=== PATIENT | female | born 1985 | race Caucasian/White ===

== ENCOUNTER 2020-10-08 14:02 | Outpatient (CLI) | payer BC, SELFPAY ==
--- NOTE | 2020-10-08 13:45 | DI.RAD_ITS ---
Exam(s) XR KNEE LT 3V AP,LAT,USHA EXAM: XR KNEE LT 3V AP,LAT,SUHA CLINICAL HISTORY: left knee pain. TECHNIQUE: 2D digital imaging was performed. COMPARISON: No exams were available for comparison FINDINGS: BONES: No acute fracture is present. No bony destructive lesion is seen. No significant degenerative changes. JOINTS: The knee is normally aligned. No joint effusion is seen. Joint spaces are well maintained. SOFT TISSUE: Normal. IMPRESSION: Normal radiographs of the left knee. DATA REPOSITORY: RADIATION DOSE DELIVERED:
== END 2020-10-08 14:03 | disposition home or self-care (01) ==
LOC: DIORS 14:02
PROVIDERS: PCP Nurse Practitioner Adult Health; Visit Provider Student in an Organized Health Care Education/Training Program
DX: M25.562 Pain in left knee (principal)
CPT/HCPCS: 73562

== ENCOUNTER 2021-12-02 16:08 | Outpatient (REF) | payer BC, SELFPAY ==
[2021-12-04 11:37] LABS: COVID-19 RT-PCR UVMMC Result Positive (Negative)
== END 2021-12-02 16:09 | disposition home or self-care (01) ==
LOC: LBN 16:08
PROVIDERS: PCP Nurse Practitioner Adult Health; Visit Provider Nurse Practitioner
DX: U07.1 COVID-19 (principal)
CPT/HCPCS: U0003

== ENCOUNTER 2021-12-19 10:55 | Outpatient (REF) | payer BC, SELFPAY ==
--- NOTE | 2021-12-19 10:00 | PAPFT_PTH ---
PATIENT: Marisol Obrien LOC: [facility]#:[id number] AGE/SX: 36/F ROOM: RE12/19/[address]: Kary Brown APRN : 1985 BED: DIS: 12/19/2021 SPEC #: [id number] RECD: 12/19/21 18:31 STATUS: MAGUI REQ #: [id number] WERO: 12/19/21 10:[address]: Kary Brown DEPT: [facility] Cytology RECD BY: Raquel Malik Tissues: 1 - CX/ENDOCX FOR PAP SMEARS Procedures: PAP THIN PREP/UVM Screening HPV DNA PROBE Comments: [id number]
[2021-12-22 15:42] LABS: Chlamydia Result Negative (Negative); GC Result Negative (Negative)
== END 2021-12-19 10:56 | disposition home or self-care (01) ==
LOC: LBN 10:55
PROVIDERS: PCP Nurse Practitioner Adult Health; Visit Provider Nurse Practitioner Adult Health
DX: Z11.3 Encounter for screening for infections with a predominantly sexual mode of transmission (principal); Z12.4 Encounter for screening for malignant neoplasm of cervix
CPT/HCPCS: 87491; 87591; 88142; 87480; 87510; 87624; 87660

== ENCOUNTER 2021-12-25 03:59 | Outpatient (CLI) | payer BC, SELFPAY ==
[2021-12-26 09:32] LABS: HIV-1/2 Ag & Ab Screen Negative (Negative)
[2021-12-26 10:04] LABS: Hepatitis C Ab w Rflx HCV PCR Negative (Negative)
[2021-12-26 12:15] LABS: Syphilis Serology (RPR) Negative (Negative)
== END 2021-12-25 04:00 | disposition home or self-care (01) ==
LOC: LBO 03:59
PROVIDERS: PCP Nurse Practitioner Adult Health; Referring Provider Nurse Practitioner Adult Health; Visit Provider Nurse Practitioner Adult Health
DX: Z11.3 Encounter for screening for infections with a predominantly sexual mode of transmission (principal); Z11.4 Encounter for screening for human immunodeficiency virus [HIV]; Z11.59 Encounter for screening for other viral diseases
CPT/HCPCS: 36415; 86803; 87389; 86592

== ENCOUNTER 2023-12-02 12:34 | Outpatient (REF) | payer BC, SELFPAY ==
[2023-12-02 14:58] LABS: Bilirubin Negative (Negative); Blood Negative (Negative); Clarity Clear (Clear); Glucose Negative (Negative); Ketones Trace mg/dL (Negative); Leukocyte Esterase Negative (Negative); Nitrite Negative (Negative); Specific Gravity <= 1.005 (1.005-1.025); Urobilinogen 0.2 mg/dL (Up to 0.2)
== END 2023-12-02 12:35 | disposition home or self-care (01) ==
LOC: LBN 12:34
PROVIDERS: PCP Nurse Practitioner Adult Health; Visit Provider Nurse Practitioner Adult Health
DX: N39.0 Urinary tract infection, site not specified (principal)
CPT/HCPCS: 81003

== ENCOUNTER 2024-04-16 20:21 | Emergency (ER) | payer BC, SELFPAY ==
[2024-04-16 20:34] VITALS: BP 99/60; PULSE 72; RESP 20; TEMP 36.7; O2SAT 97
[2024-04-16 20:41] VITALS: BP 99/60; PULSE 78; RESP 16; TEMP 36.7; O2SAT 97
--- NOTE | 2024-04-16 20:52 | W.ED.GENAD ---
Discharge Plan Disposition Patient Disposition: Home Condition: Stable Discharge Details Clinical Impression: Nausea vomiting and diarrhea, Dehydration Primary Care Provider: Kary Brown ED Provider: Nick Dixon Home Meds and New Rx's Prescriptions: Discontinued miconazole nitrate 200 mg/5 gram (4 %) cream 1 appful vaginal QHS 3 Days Qty: 15 1RF Rx Instructions: Trial cream only nystatin 100,000 unit/gram ointment 1 applic topical DAILY Qty: 30 1RF Rx Instructions: trial for groin rash; try before cycling loratadine 10 mg tablet 10 - 20 mg PO DAILY Qty: 30 0RF famotidine 20 mg tablet 20 mg PO DAILY Qty: 14 0RF nitrofurantoin monohyd/m-cryst [Macrobid] 100 mg capsule 100 mg PO BID Qty: 10 0RF Rx Instructions: must administer with a meal/food drospirenone-ethinyl estradiol 3-0.02 mg tablet 1 tab PO DAILY Qty: 84 3RF Discharge Instructions Instructions: Nausea and Vomiting, Adult ED Additional Instructions: Your blood work did not show any concerning findings at this time. You are likely suffering from a viral illness that will likely resolve in a few days. If you are not starting to improve this week I would recommend following up with either your primary care provider or express care. If you feel more ill or have severe worsening abdominal pain or persistent vomiting return to the emergency department for reevaluation HPI General Date/Time Provider Initiated Documentation: 04/16/24 20:25. Limitations to Documentation: no limitations. Information obtained by: patient. History of Present Illness 39 year old F presents to the emergency department with the chief complaint of n/v/d, described as moderate, Quality is described as other (cramping), and is localized to the abdomen. Patient reports no radiation. Patient started experiencing this day(s) (1) and it has been constant. No relieving factors improve symptom(s), No exacerbating factors reported . Patient notes no other symptoms. and nausea/vomiting. Patient did receive the following treatments prior to arrival, none Related Data Allergies Allergy/AdvReac Type Severity Reaction Status Date / Time No Known Allergies Allergy Verified 04/16/24 20:42 General Stated Complaint: Abd Prob MACIEL: 3 Review of Systems All systems reviewed & are unremarkable except as noted in HPI and below Constitutional Constitutional: Denies chills and Denies fever(s) Gastrointestinal Gastrointestinal: Reports abdominal pain, Reports nausea and Reports vomiting Genitourinary Genitourinary: Denies dysuria Exam Const General: no acute distress Orientation: alert [facility] Head: normal to inspection Ears: external ears normal General nose exam: external nose normal Mouth: moist mucous membranes Eyes General: appearance normal, both eyes and all related structures Neck Neck: normal visual inspection Resp Effort & Inspection: normal respiratory effort and able to speak in complete sentences Cardio Rate: regular rate GI Palpation: soft, not firm, no guarding and tender Auscultation: hyperactive bowel sounds Skin General skin exam: no rashes or lesions noted Neuro General: patient alert and patient oriented x3 Extrem General: normal to inspection Psych Mental Status: mental status grossly normal Course Vital Signs Vital signs: Vital Signs Temperature 36.7 C 04/16/24 20:34 Pulse 72 04/16/24 20:34 Respiratory Rate 20 04/16/24 20:34 Blood Pressure 99/60 L 04/16/24 20:34 Pulse Oximetry 97 04/16/24 20:34 Temperature 36.7 C 04/16/24 20:41 Temperature Source Oral 04/16/24 20:41 Pulse 78 04/16/24 20:41 Respiratory Rate 16 04/16/24 20:41 Blood Pressure 99/60 L 04/16/24 20:41 Blood Pressure Position Sitting 04/16/24 20:41 Pulse Oximetry 97 04/16/24 20:41 Oxygen Delivery Method Room Air 04/16/24 20:34 Oxygen Flow Rate 0 04/16/24 20:34 Medical Decision Making 39-year-old female without any significant chronic medical problems comes in with nausea vomiting diarrhea starting last night. She recently traveled to [place]. She apparently lives at the airport in [place] and drove home to this area and was vomiting during the drive. She denies any severe abdominal pain but has had cramping. Denies any high fevers. She has a soft abdomen with minimal tenderness with deep palpation in all quadrants, no guarding or rebound. She does have hyperactive bowel sounds. I suspect she has gastroenteritis versus norovirus. Will check screening labs including CBC, CMP, lipase and hCG and also treat her symptoms with IV fluids, Zofran and Toradol and reassess. Patient's labs show no significant findings. She declined to have an hCG. She is tolerating p.o. and feels better requesting discharge. Given reassuring workup I feel this is reasonable. I will provide her with Nadjafrmichael and advised to follow-up with either PCP or express care if she is not improving, return precautions given. Differential Diagnosis Differential Diagnosis: Gastroenteritis, food illness, norovirus Lab Data Lab results reviewed: Yes I reviewed the patient's lab results. Quality:SDOH Health Related Social Needs: No Data to Display PFSH All Active Problems (Updated 04/16/24 @ 21:57 by Nick Dixon MD) Dehydration (Acute) Nausea vomiting and diarrhea (Acute) Contraceptive surveillance (Chronic) OCP Chronic low back pain (Chronic) Self-care strategies work (stretching & strengthening) Medical History COVID (~12/02/21) Toenail fungus Toenail deformity Lateral meniscal tear (~11/2019) Hx of candidal vulvovaginitis Internal derangement of left knee Tendinitis of left quadriceps tendon Left knee pain, but pain/swelling @ distal quad vs knee/patella. Hx overuse w/ running, no injury. Surgical History No significant past surgical history Family History Maternal Grandfather Heart disease Paternal Grandfather Heart disease Social History Smoking/Tobacco Use Status: Never Smoking risk assessment performed?: Yes Alcohol Intake: current Alcohol Intake frequency: a few times a week Alcohol type: beer and wine Drug use: Never Substance use type: does not use Adopted: No Caregiver/Support person: No Foster care: No Household members: none Housing: house Number of Children: 0 number of grandchildren: 0 Communication Needs: None Education Level: college Do you need help understanding health information?: Never current occupation: [employer] Pets and animals: Yes Pets and animals: cat(s) Sexually active: Yes Do you think of yourself as: straight/heterosexual Current gender identity: female What is your relationship status?: never How often do you talk on the phone with friends or family?: twice per week How often do you get together with friends or relatives?: three or more times per week How often do you attend shinto or latter-day services?: decline to answer Do you belong to any clubs or organized social groups?: yes Panel score (0-1 are the most socially isolated patients): 2 What type of physical activity do you participate in: bicycling and running Duration: 45-60 minutes/day Frequency: 5-6 times per week Special domenic needs: No Seatbelt use: always Helmet use: Yes Helmet use: always Drive intox or ride w/intox van driver: No Working smoke detector in home: Yes Fire extinguisher in home: Yes Carbon monox detector in home: Yes PAWSS Have you Been Recently Intoxicated or Drunk Within the Last 30 days?: No Have you Ever Experienced Previous Episodes of Alcohol Withdrawal?: No Have you ever Experienced Withdrawal Seizures?: No Have you ever Experienced Delirium Tremens(DT)s?: No Have you ever undergone Alcohol Rehabilitation Treatment (i.e, inpt ot outpatient treatment programs)?: No Have you ever Experienced Blackouts?: No Have you ever Combined Alcohol with other Downers within the last 90 days?: No Have you ever Combined Alcohol with any other Substance of Abuse during the last 90 days?: No Positive Blood Alcohol level on Presentation? [PCS.BAL]: No Evidence of Increased Autonomic Activity (i.e. HR>120, tremor, sweating, agitation, nausea)?: No Result: 0
[2024-04-16] MEDS: Normal Saline 1,000 ML 1000 ML IV (21:04)
[2024-04-16] MEDS: Ketorolac 15 MG/ML VIAL IVP (21:05)
[2024-04-16] MEDS: Ondansetron 4 MG/2 ML VIAL IVP (21:05)
[2024-04-16 21:15] LABS: Abs Immature Grans 0.07 10^3/uL (0.0-0.06); Absolute Basophil Count 0.04 10^3/uL (0.0-0.2); Absolute Eosinophil Count 0.04 10^3/uL (0.0-0.7); Absolute Lymphocyte Count 0.47 10^3/uL (1.2-3.4); Absolute Monocyte Count 0.44 10^3/uL (0.1-0.8); Absolute Neutrophil Count 8.44 10^3/uL (1.2-6.7); Basophils % 0.4 %; Eosinophils % 0.4 %; HCT 40.4 % (36.0-46.0); HGB 13.5 g/dL (11.2-15.7); Immature Grans % 0.7 %; Lymphocytes % 4.9 %; MCH 31.3 pg (27.0-33.0); MCHC 33.4 % (32.0-36.0); MCV 94 fL (80-95); MPV 9.9 fL (8.0-11.0); Monocytes % 4.6 %; Platelet Count 275 10^3/uL (130-400); RBC 4.31 10^6/uL (3.93-5.22); RDW 11.6 % (11.7-14.6); RDW-SD 40.1 fL
[2024-04-16 21:26] VITALS: BP 105/51; PULSE 60; RESP 16; O2SAT 96
[2024-04-16 21:40] LABS: ALT 24 U/L (14-59); AST 17 U/L (15-37); Albumin 3.9 g/dL (3.4-5.0); Alkaline Phosphatase 59 U/L (46-116); Anion Gap 8.5 mmol/L (3-11); BUN 18 mg/dL (7-18); Bilirubin, Direct 0.2 mg/dL (0.0-0.2); Bilirubin, Total 0.94 mg/dL (0.2-1.0); CO2 26.5 mmol/L (21.0-32.0); CREATININE 0.7 mg/dL (0.55-1.02); Calcium 8.9 mg/dL (8.5-10.1); Chloride 105 mmol/L (98-107); Estimated GFR 112.75 (mL/min/1.73m2); Glucose 133 mg/dL (74-106); Lipase 18 U/L (<78); Magnesium 1.8 mg/dL (1.8-2.4); Potassium 3.7 mmol/L (3.5-5.1); Sodium 140 mmol/L (136-145); Total Protein 7.4 g/dL (6.4-8.2)
[2024-04-16 21:53] LABS: COVID-19 PCR Negative (Negative); Influenza A PCR Negative (Negative); Influenza B PCR Negative (Negative); RSV PCR Negative (Negative)
[2024-04-16 21:54] LABS: Source Nasopharynx
--- NOTE | 2024-04-16 21:58 | NUR.NOTE ---
PT stated she feels better, have started a PO Challenge, FPJ
[2024-04-16] MEDS: Ondansetron O.D.T. 4 MG TABEF, 3 TABS/BTL PO (22:15)
[2024-04-16 22:17] VITALS: BP 110/48; PULSE 60; RESP 16; TEMP 37.1; O2SAT 98
== END 2024-04-16 22:17 | disposition home or self-care (01) ==
PROVIDERS: Emergency Provider Emergency Medicine; PCP Nurse Practitioner Adult Health
DX: E86.0 Dehydration (principal); R11.2 Nausea with vomiting, unspecified; R19.7 Diarrhea, unspecified
CPT/HCPCS: 36415; 80053; 83690; 87637; 96361; 96374; 96375; 99284; 82248; 83735; 84703; 85025; J1885; J2405